=== PATIENT | female | born 1970 | race Caucasian/White ===

== ENCOUNTER 2021-11-12 11:31 | Emergency (ER) | payer BC ==
[~2021-11-12] VITALS: Ht 165.1 cm; Wt 78.5 kg
[2021-11-12 11:39] VITALS: BP_SYST 131
--- NOTE | 2021-11-12 11:39 | NUR ---
Pt. bib fiance with concern of chest pain started last night, rates it 01/03, prior to the chest pain has had 6 days of pain behind left shoulder, saw chiropracter and had massage yesterday with no improvement
--- NOTE | 2021-11-12 11:39 | NUR ---
Patient to ER bed 2 to gown for evaluation. Side rails up. Assumed care of pt.
--- NOTE | 2021-11-12 11:43 | NUR ---
ER at bedside examining patient.
[2021-11-12] MEDS ORDERED: ASPIRIN 81 MG TAB.CHEW PO ONE (11:45)
[2021-11-12 12:03] LABS: BASOPHILS # (AUTO) 0.1 K/uL (0.0-0.2); BASOPHILS % (AUTO) 0.8 % (0.0-2.0); EOSINOPHILS # (AUTO) 0.2 K/uL (0.0-0.4); EOSINOPHILS % (AUTO) 3.2 % (0.0-4.0); HEMATOCRIT 42.6 % (36-48); HEMOGLOBIN 14.5 g/dL (12.0-16.0); LYMPHOCYTES # (AUTO) 2.4 K/uL (1.0-5.5); LYMPHOCYTES % (AUTO) 32.5 % (20.5-51.5); MEAN CORPUSCULAR HEMOGLOBIN 30 pg (27-31); MEAN CORPUSCULAR HGB CONC 34 % (32-36); MEAN CORPUSCULAR VOLUME 88 fL (79.0-98.0); MONOCYTES # (AUTO) 0.5 K/uL (0.0-1.0); MONOCYTES % (AUTO) 7.2 % (1.7-9.3); NEUTROPHILS # (AUTO) 4.2 K/uL (1.8-7.7); NEUTROPHILS % (AUTO) 56.3 % (40.0-70.0); PLATELET COUNT (AUTO) 294 K/uL (130-430); RED BLOOD CELL COUNT(AUTO) 4.83 MIL/uL (4.2-6.2); RED CELL DISTRIBUTION WIDTH 12.9 % (9.0-15.0); WHITE BLOOD COUNT (AUTO) 7.5 K/uL (4.8-10.8)
[2021-11-12 12:15] LABS: ANION GAP 9 (5-15); CALCIUM 8.4 mg/dL (8.4-11.0); CHLORIDE 103 mmol/L (98-107); CREATININE 0.65 mg/dL (0.55-1.30); GFR AFRICAN AMERICAN 123 mL/min (>90); GLUCOSE 98 mg/dL (70-99); POTASSIUM 4.1 mmol/L (3.5-5.1); SODIUM SERUM 139 mmol/L (136-145); UREA NITROGEN, BLOOD 7 mg/dL (8-21)
[2021-11-12] MEDS ORDERED: ALPRAZolam 0.25 MG TABLET PO ONE (12:15)
[2021-11-12 12:23] LABS: ALANINE AMINOTRANSFERASE 57 U/L (12-78); ALBUMIN 3.7 g/dL (3.4-4.8); ASPARTATE AMINOTRANSFERASE 24 U/L (10-37); TOTAL BILIRUBIN 0.6 mg/dL (0.0-1.0)
[2021-11-12 15:18] VITALS: BP_SYST 116
--- NOTE | 2021-11-12 15:19 | NUR ---
Patient given written and verbal discharge instructions and verbalizes understanding. ER Dr. George discussed with patient the results and treatment provided. Patient in stable condition. ID arm band removed. Patient educated on pain management and to follow up with PMD. Pain Scale 4. Opportunity for questions provided and answered.
== END 2021-11-12 15:19 | disposition home or self-care (01) ==
LOC: SED 11:31
DX: R07.9 Chest pain, unspecified (principal); F41.9 Anxiety disorder, unspecified
CPT/HCPCS: 36415; 71045; 80053; 84484; 85025; 93005; 99285